=== PATIENT | female | born 1995 | race Native Hawaiian/Other Pacific Islander ===

== ENCOUNTER 2018-11-07 09:02 | Emergency (ER) | payer MEDICAID, OTHER ==
[~2018-11-07] VITALS: Ht 175.3 cm; Wt 77.1 kg
[2018-11-07 09:12] VITALS: BP 120/83
== END 2018-11-07 11:51 | disposition home or self-care (01) ==
LOC: ER 09:02
DX: J02.9 Acute pharyngitis, unspecified (principal)

== ENCOUNTER 2024-03-13 09:30 | Inpatient (IN) | payer MEDICAID ==
[~2024-03-13] VITALS: Ht 175.3 cm; Wt 105.7 kg
[2024-03-13] MEDS ORDERED: LIDOCAINE 2%HCL (LOCAL ANESTH.) INJ 20ML MDV IJ PRN (10:30)
[2024-03-13] MEDS ORDERED: BUTORPHANOL TARTRATE 2 MG/1 ML VIAL IV PRN ×2 (10:30)
[2024-03-13 11:13] LABS: Urine Bacteria None Seen /hpf (None Seen)
[2024-03-13 11:23] LABS: Basophils # (auto) 0 10 ^3/uL (0-0.2); Basophils % (auto) 0.3 % (0.0-2.0); Eosinophils # (auto) 0.1 10 ^3/uL (0-0.8); Eosinophils % (auto) 0.7 % (0.0-7.0); Hematocrit 38.5 % (36.0-46.0); Lymphocytes # (auto) 1.7 10 ^3/uL (0.4-5.4); Mean Corpuscular Hemoglobin 27.3 pg (28.0-32.0); Mean Corpuscular Hgb Conc. 33.7 g/dL (32.0-36.0); Mean Corpuscular Volume 80.9 fL (80.0-100.0); Monocytes # (auto) 0.7 10 ^3/uL (0-1.3); Monocytes % (auto) 6.5 % (0.0-12.0); Neutrophils # (auto) 7.7 10 ^3/uL (1.6-8.6); Neutrophils % (auto) 75.5 % (37.0-80.0); Nucleated Red Blood Cells % 0.1 %; Red Blood Cells 4.76 10^6/uL (4.0-5.20); Red Cell Distribution Width 15.4 % (11.8-14.3); White Blood Cell 10.2 10^3/uL (4.4-10.8)
[2024-03-13] MEDS: LACTATED RINGER'S 1,000 ML IV SCH (11:23)
[2024-03-13 11:28] LABS: Urine Blood 3+ /uL (Negative); Urine Clarity Turbid (Clear); Urine Color Colorless (Yellow); Urine Protein, UAD TRACE (Negative); Urine Specific Gravity 1.013 (1.001-1.035); Urine Urobilinogen Normal (Negative); Urine WBC 13 /hpf (0 - 5); Urine pH 6.5 (5.0-9.0)
[2024-03-13 11:33] LABS: Amphetamine Screen, Urine Neg (NEGATIVE)
[2024-03-13 11:34] LABS: Barbiturate Scree,Urine Neg (NEGATIVE); Benzodiazephine Screen, Urine Neg (NEGATIVE); Cannabinoid Screen, Urine Neg (NEGATIVE); Cocaine Screen, Urine Neg (NEGATIVE); Opiate Scree,Urine Neg (NEGATIVE); Phencyclidine Screen, Urine Neg (NEGATIVE)
[2024-03-13 11:35] LABS: Alanine Aminotransferase 19 U/L (7-40); Alkaline Phosphatase 110 U/L (46-116); Anion Gap 6 (5-15); Aspartate Aminotransferase 18 U/L (13-40); BUN/Creatinine Ratio 10.9 (10.0-20.0); Blood Urea Nitrogen 7 mg/dL (9-23); Carbon Dioxide 25 mmol/L (20-30); Chloride 106 mmol/L (98-107); Glucose 84 mg/dL (74-106); Potassium 3.9 mmol/L (3.5-5.1); Sodium 137 mmol/L (136-145)
[2024-03-13 11:36] LABS: Bilirubin, Total 0.4 mg/dL (0.2-1.0); INR 0.95 (0.9-1.15); Partial Thromboplastin Time 27.2 SEC (24.5-34.5); Prothrombin Time 10.1 sec (9.3-11.8); Total Protein 6.8 g/dL (5.7-8.2)
[2024-03-13] MEDS: PENICILLIN G POT 5MIL/D5 50ML 50 ML IV ONE (11:52)
[2024-03-13] MEDS ORDERED: LACT. RINGERS/OXYTOCIN 20UNITS 500 ML IV ONE ×2 (13:30→14:00)
[2024-03-13] MEDS ORDERED: ePHEDrine SULFATE 50 MG/ML AMP IV ONE (13:30)
[2024-03-13] MEDS ORDERED: TERBUTALINE SULFATE 1 MG/ML 1ML VIAL SC PRN (13:30)
[2024-03-13] MEDS ORDERED: LACT. RINGERS/OXYTOCIN 20UNITS 1,000 ML IV SCH (13:30)
[2024-03-13] MEDS ORDERED: LACTATED RINGER'S 500 ML IV ONE (13:30)
[2024-03-13] MEDS ORDERED: NALOXONE HCL 0.4 MG/ML VIAL IV ONE (13:30)
[2024-03-13] MEDS: ROPIVACAINE HCL 200 ML ONE (13:35)
[2024-03-13] MEDS: DERMOPLAST 60ML BOTTLE TOP PRN (14:13)
[2024-03-13] MEDS: PHISODERM TOP SOLN 240ML BTL TOP PRN (14:13)
[2024-03-13] MEDS: WITCH HAZEL-GLYCERIN PAD TOP PRN (14:14)
[2024-03-13] MEDS: fentaNYL CITRATE 100 MCG/2 ML VL IV STA (14:53)
[2024-03-13] MEDS: PENICILLIN G POTASSIUM 2,500,000 UNITS in D5W 5% 50 ML IV SCH (15:32)
[2024-03-13] MEDS ORDERED: ONDANSETRON ODT 4 MG TAB PO PRN (21:45)
[2024-03-13 22:57] VITALS: BP 117/63; PULSE 120; RESP 16; TEMP 98.1; O2SAT 97
[2024-03-14] MEDS: IBUPROFEN 600 MG TAB PO PRN (01:11)
[2024-03-14] MEDS: DOCUSATE SOD 100 MG CAP PO SCH (01:11)
[2024-03-14 03:00] VITALS: BP 121/66; PULSE 102; RESP 16; TEMP 98.1; O2SAT 97
[2024-03-14] MEDS: ACETAMINOPHEN 325 MG TAB PO PRN (03:24)
[2024-03-14 07:00] VITALS: BP 120/75; PULSE 89; RESP 16; RESP 18; TEMP 98; O2SAT 96
[2024-03-14 10:44] VITALS: BP 126/90; PULSE 103; RESP 20; TEMP 98.1; O2SAT 97
[2024-03-14 15:30] VITALS: BP 124/79; PULSE 77; RESP 18; TEMP 97.9; O2SAT 98
[2024-03-14 19:00] VITALS: BP 122/77; PULSE 99; RESP 18; TEMP 98.2; O2SAT 100
[2024-03-14 23:00] VITALS: BP 122/77; PULSE 101; RESP 18; TEMP 98; O2SAT 98
[2024-03-15 03:00] VITALS: BP 109/69; PULSE 94; RESP 18; TEMP 98.1; O2SAT 97
[2024-03-15 07:00] VITALS: BP 121/81; PULSE 91; RESP 20; TEMP 97.9; O2SAT 98
[2024-03-15 07:32] VITALS: BP 121/81; PULSE 91; RESP 20; TEMP 97.9; O2SAT 98
[2024-03-15 08:06] LABS: RPR Non Reactive (Non Reactive)
[2024-03-15 19:06] LABS: QuantiFERON-TB Gold Plus Negative (Negative)
[2024-03-16 19:06] LABS: Treponema pallidum Ab (FTA-Ab) Non Reactive (Non Reactive)
== END 2024-03-15 09:36 | disposition home or self-care (01) | DRG 560 ==
LOC: LDRP 09:30 → OBSVTOIN 10:28 → LDRP 10:28
PROVIDERS: ADMIT Obstetrics & Gynecology; ATTEND Obstetrics & Gynecology
PROC: 10E0XZZ Delivery of Products of Conception, External Approach (ICD-10-PCS; principal; 2024-03-13)
PROC: 3E0R3BZ Introduction of Anesthetic Agent into Spinal Canal, Percutaneous Approach (ICD-10-PCS; 2024-03-13)
PROC: 00HU33Z Insertion of Infusion Device into Spinal Canal, Percutaneous Approach (ICD-10-PCS; 2024-03-13)
PROC: 0KQM0ZZ Repair Perineum Muscle, Open Approach (ICD-10-PCS; 2024-03-13)
DX: O75.81 Maternal exhaustion complicating labor and delivery (principal); Z37.0 Single live birth; O70.1 Second degree perineal laceration during delivery; Z3A.37 37 weeks gestation of pregnancy
CPT/HCPCS: 36415; 59025; 59409; 62282; 80053; 80307; 81001; 81002; 85025; 85610; 85730; 86592; 86703; 86762; 86803; 86850; 86900; 86901; 87340; 94760; 96360; 96361; G0378; J2540; J2590; J7060